=== PATIENT | female | born 1955 | race Caucasian/White ===

== ENCOUNTER 2017-02-09 10:09 | Inpatient (IN) | payer MEDICARE ==
[~2017-02-09] VITALS: Ht 160 cm; Wt 108.9 kg
[~2017-02-09 10:09] MED LIST: GABA-486 PO
[2017-02-09] MEDS ORDERED: ceFAZolin 1 GM/NS 50 ML IVPB IV ONE ×2 (10:30)
[2017-02-09 10:46] VITALS: BP 137/98
--- NOTE | 2017-02-09 11:27 | Progress Note-Pre Operative ---
Pre-Operative Progress Note H&P Reviewed The H&P was reviewed, patient examined and no changes noted. Date Seen by Provider: Feb 09, 2017 Time Seen by Provider: 11:27 Date H&P Reviewed: Feb 09, 2017 Time H&P Reviewed: 11:27 Pre-Operative Diagnosis: morbid obesity, HTN NADINE PENNY MD Feb 09, 2017 11:27 am
[2017-02-09] MEDS ORDERED: FAMOTIDINE 20MG/2ML IV (PEPCID) ONE (13:22)
[2017-02-09] MEDS ORDERED: SCOPOLAMINE 1.5 MG (TRANSDERM-SCOP) PATCH ONE (13:22)
[2017-02-09] MEDS ORDERED: MIDAZOLAM 2 MG/2 ML (VERSED) VIAL ONE ×3 (13:22→14:57)
[2017-02-09] MEDS ORDERED: ONDANSETRON 4 MG/2 ML (SDV) Z0FRAN ONE ×2 (13:22→14:15)
[2017-02-09] MEDS ORDERED: ATRACURIUM 50 MG/5 ML (TRACRIUM) IV ONE (13:23)
[2017-02-09] MEDS ORDERED: BUP/EPI 0.5% 1:200,000 (MARCAINE) 10ML VIAL IJ ONE (13:23)
[2017-02-09] MEDS ORDERED: LACTATED RINGERS 1,000 ML IV PRN (13:32)
[2017-02-09] MEDS ORDERED: MIDAZOLAM 2 MG/2 ML (VERSED) VIAL IV ONE (13:45)
[2017-02-09] MEDS ORDERED: FAMOTIDINE 20MG/2ML IV (PEPCID) IV ONE (13:45)
[2017-02-09] MEDS ORDERED: SCOPOLAMINE 1.5 MG (TRANSDERM-SCOP) PATCH TOP ONE (13:45)
[2017-02-09] MEDS ORDERED: ONDANSETRON 4 MG/2 ML (SDV) Z0FRAN IV ONE (13:45)
[2017-02-09] MEDS ORDERED: ROCURONIUM 50 MG/5 ML (ZEMURON) VIAL IV ONE (14:15)
[2017-02-09] MEDS ORDERED: DEXAMETHASONE 10 MG/ML (DECADRON) 1 ML VIAL ONE (14:15)
[2017-02-09] MEDS ORDERED: LIDOCAINE PF 2% 5 ML (XYLOCAINE) VIAL ONE (14:15)
[2017-02-09] MEDS ORDERED: SEVOFLURANE (ULTANE) 15 ML INHAL SOLN ONE ×2 (14:15→16:26)
[2017-02-09] MEDS ORDERED: proPOfol 200 MG/20 ML (DIPRIVAN) VIAL IV ONE (14:15)
[2017-02-09] MEDS ORDERED: fentaNYL INJECTION 250 MCG/5 ML AMP ONE (14:16)
[2017-02-09] MEDS ORDERED: fentaNYL INJECTION 100 MCG/2 ML AMP ONE ×2 (16:20→17:47)
[2017-02-09] MEDS ORDERED: ONDANSETRON 4 MG/2 ML (SDV) Z0FRAN IVP PRN (16:30)
[2017-02-09] MEDS ORDERED: NEOSTIGMINE (BLOXIVERZ ) 1 MG/1ML 10 ML VIAL ONE (16:39)
[2017-02-09] MEDS ORDERED: GLYCOPYRROLATE 0.2 MG/ML (ROBINUL) 2 ML VIAL ONE (16:39)
[2017-02-09] MEDS ORDERED: LABETALOL HCL 20 MG/4 ML VIAL ONE ×2 (16:48→17:19)
[2017-02-09] MEDS ORDERED: NS IV 1000 ML 1,000 ML IV SCH (17:17)
--- NOTE | 2017-02-09 17:17 | Progress Note-Post Operative ---
Post-Operative Progess Note Surgeon (s)/Grab Operator (s) Surgeon NADINE PENNY MD Grab Operator: fanta slade Pre-Operative Diagnosis Morbid obesity, HTN, DJD Post-Operative Diagnosis same Procedure & Operative Findings Date of Procedure 02/09/17 Procedure Performed/Findings laparoscopic gastric sleeve resection. Anesthesia Type GET Estimated Blood Loss Estimated blood loss (mL): minimal Specimens/Packing Specimens Removed stomach NADINE PENNY MD Feb 09, 2017 5:17 pm
[2017-02-09] MEDS ORDERED: ONDANSETRON 4 MG/2 ML (SDV) Z0FRAN IV PRN (17:30)
[2017-02-09] MEDS ORDERED: diphenhydrAMINE 50 MG/ML INJ (BENADRYL) IV PRN (17:30)
[2017-02-09] MEDS ORDERED: NALOXONE 0.4 MG/ML 1 ML (NARCAN) VIAL IV PRN (17:30)
[2017-02-09] MEDS ORDERED: diphenhydrAMINE 50 MG/ML INJ (BENADRYL) IVP PRN (17:30)
[2017-02-09] MEDS: RT-ALBUTEROL SULF 2.5 MG/3 ML PRE-MIX VIAL INH SCH ×3 (17:30→22:29)
[2017-02-09] MEDS: morphine INJ 10 MG/ML 1ML (SYR OR VIAL) IVP PRN ×2 (17:30→17:35)
[2017-02-09] MEDS ORDERED: METOCLOPRAMIDE INJ 10 MG/2 ML (REGLAN) IV PRN (17:30)
[2017-02-09] MEDS: fentaNYL INJECTION 100 MCG/2 ML AMP IVP PRN ×2 (17:55→18:12)
[2017-02-09 18:48] VITALS: BP 178/84
[2017-02-09] MEDS: ONDANSETRON 4 MG/2 ML (SDV) Z0FRAN IVP SCH ×2 (19:00→23:39)
[2017-02-09] MEDS: METOCLOPRAMIDE INJ 10 MG/2 ML (REGLAN) IVP SCH (19:34)
[2017-02-09] MEDS: 1/2 NS W/KCL 20 MEQ/L 1,000 ML IV SCH (19:37)
[2017-02-09] MEDS: fentaNYL PCA 300 MCG/30 ML VIAL IV PRN (19:47)
[2017-02-09 19:50] VITALS: BP 178/85
[2017-02-09] MEDS ORDERED: INFLUENZA TRIvalent 2017-2018 0.5 ML/45 MCG SYR IM ONE (20:30)
[2017-02-09] MEDS: ceFAZolin 2 GM/50 ML NS 50 ML IV SCH (21:08)
[2017-02-09] MEDS: ENOXAPARIN 30 MG/0.3 ML (LOVENOX) SYR SC SCH (21:08)
[2017-02-09] MEDS: DEXAMETHASONE 4 MG/ML SDV (DECADRON) IV PRN (21:24)
[2017-02-09] MEDS ORDERED: HYDROmorphone (DILAUDID) 2 MG/ML VIAL IVP PRN (22:00)
[2017-02-09] MEDS ORDERED: PROMETHAZINE INJ 25 MG/ML (PHENERGAN) AMP IVP PRN (22:00)
[2017-02-09] MEDS: CLINDAMYCIN INJECTION 600 MG in NS (IVPB) 50 ML IV SCH (22:50)
[2017-02-09 23:22] VITALS: BP 141/75
[2017-02-10] MEDS: METOCLOPRAMIDE INJ 10 MG/2 ML (REGLAN) IVP SCH ×3 (00:35→12:45)
[2017-02-10] MEDS: DEXAMETHASONE 4 MG/ML SDV (DECADRON) IV PRN (01:45)
[2017-02-10] MEDS: RT-ALBUTEROL SULF 2.5 MG/3 ML PRE-MIX VIAL INH SCH ×4 (02:26→14:01)
[2017-02-10] MEDS: 1/2 NS W/KCL 20 MEQ/L 1,000 ML IV SCH ×2 (03:08→06:41)
--- NOTE | 2017-02-10 03:32 | OPERATIVE REPORT ---
DATE OF SERVICE: 02/09/2017 PRIMARY CARE PHYSICIAN: Dr. Hickey. PREOPERATIVE DIAGNOSIS: Morbid obesity, degenerative joint disease, hypertension. POSTOPERATIVE DIAGNOSIS: Morbid obesity, degenerative joint disease, hypertension. PROCEDURE: Laparoscopic gastric sleeve resection. SURGEON: Dr. Nadine Penny. MAINTENANCE SHOP CLERK: Tony Zhu APRN. ANESTHESIA: General endotracheal. ESTIMATED BLOOD LOSS: Minimal. FINDINGS: Anterior omental adhesions due to a previous laparotomy incision, surgically absent gallbladder. No hiatal hernia. DISPOSITION: The patient tolerated the procedure well. INDICATIONS: The patient is a 61-year-old female who has struggled with obesity for the past 30 years. She reports that she has tried a number of diet and exercise attempts with no success. She has tried exercise programs including walking treadmill, stationary bike as well as aerobic exercise classes with no success. She has tried diet regimens including a low-calorie, low-carbohydrate diet as well as Atkins and [place] diet as well as some fast again with no success. She has also tried phentermine for several months and did lose some weight; however, would regain the weight back as well as more after discontinuation of the medication. Her medical comorbidities related to her obesity include degenerative joint disease and hypertension. DESCRIPTION OF PROCEDURE: The patient was brought to the operating room, laid supine on the table. After adequate IV pain and sedative medications and general endotracheal intubation, the abdomen was prepped and draped in standard surgical fashion. A 0.5% Marcaine with epinephrine was used to anesthetize the overlying skin in the left upper abdominal quadrant and a small transverse skin incision made using a 15 blade. An 0 silk suture was applied to the medial aspect of the incision for retraction and a Veress needle inserted with a low opening pressure of 0 mmHg and the abdomen was then insufflated to 15 mmHg pressure. The Veress needle removed and a 5 mm Xcel trocar placed, followed by a 5 mm 45-degree angle laparoscope visualizing the peritoneal cavity. A significant amount of omental adhesions were identified towards the anterior abdominal wall secondary to previous midline laparotomy incision. A midabdominal left of midline 10 mm port was placed. The omental adhesions were then taken down systematically using Sonicision with visualization of good hemostasis. We then proceeded to place a midabdominal 15 mm port site, after the skin and peritoneal lining were anesthetized using 0.5% Marcaine with epinephrine and a transverse skin incision made using a 15 blade. In a similar manner, a right upper abdominal quadrant 5 mm port was placed. The epigastric region was then anesthetized and a small skin incision made using a 11 blade. A trocar to a 5 mm port was then used to create an opening through the abdominal wall layers and through this opening a medium-sized Autumn liver retractor was placed and the left lobe of the liver retracted anteriorly and superiorly. The patient was then placed in steep reverse Trendelenburg position. We then measured approximately 6 cm from the pylorus along the greater curvature and marked this with a marking pen. The gastrocolic ligament next to the stomach was then opened using Sonicision entering the lesser sac. We first proceeded with inferior dissection until we were approximately 2 cm below our marking. We then proceeded cephalad taking the short gastric vessels towards the stomach with good visualization and good hemostasis. The entire angle of his connective tissue fibers as well as the posterior stomach behind this was also dissected as well. Good hemostasis was observed. A 42-Chinese bougie was then placed under direct visualization and directed into the pylorus. We then proceeded with a gastric sleeve resection starting approximately 2 cm below our marking along the greater curvature using a VANCE 45 mm polyglycolic acid black load. We then proceeded with a 60 mm black load, followed by three 60 mm purple loads with visualization of good hemostasis. The staple line corners were then clipped with 5 mm clips. Tisseel fibrin glue was then placed over the staple line and the omentum placed over the staple line. The liver retractor was removed. The stomach was removed through the 15 mm port site. The fascia and peritoneum to the 15 and 10 mm port site were then closed under direct visualization using a Herve-Alex device and 0 Vicryl suture. The abdomen was desufflated and remaining ports removed. All skin incisions were closed using 4-0 Monocryl running subcuticular sutures. Wounds were then cleaned and covered with Dermabond. The patient tolerated the procedure well. We will admit her overnight and start adequate pain control with a FORK REPAIRER. We will also proceed with DVT prophylaxis with calf SCDs, early ambulation as well as Lovenox injections. Tomorrow morning, we will start a phase I clear liquid diet and once she is tolerating clears and has good pain control with oral pain medications and ambulating well, we will discharge her home. Job ID: [id number] DocumentID: [id number] Dictated Date: 02/09/2017 17:47:52 Loading Machine Operator Date: 02/10/2017 00:41:56 Dictated By: NADINE PENNY MD
[2017-02-10 04:00] VITALS: BP 164/85
[2017-02-10] MEDS: ceFAZolin 2 GM/50 ML NS 50 ML IV SCH ×2 (05:12→13:44)
[2017-02-10] MEDS: CLINDAMYCIN INJECTION 600 MG in NS (IVPB) 50 ML IV SCH ×2 (06:01→13:24)
[2017-02-10 06:21] LABS: MEAN PLATELET VOLUME 10.2 FL (7.4-10.4); RED BLOOD COUNT 4.68 10^6/uL (4.35-5.85); RED CELL DISTRIBUTION WIDTH 13.1 % (10.0-14.5); WHITE BLOOD COUNT 14.8 10^3/uL (4.3-11.0)
[2017-02-10 06:40] LABS: ANION GAP 11 MMOL/L (5-14); BLOOD UREA NITROGEN 12 MG/DL (7-18); BUN/CREATININE RATIO 14; CALCIUM 9.1 MG/DL (8.5-10.1); CARBON DIOXIDE 22 MMOL/L (21-32); CHLORIDE 106 MMOL/L (98-107); CREATININE SERUM 0.85 MG/DL (0.60-1.30); GFR ESTIMATED > 60; GLUCOSE 155 MG/DL (70-105); POTASSIUM 4.4 MMOL/L (3.6-5.0); SODIUM 139 MMOL/L (135-145)
[2017-02-10] MEDS: ONDANSETRON 4 MG/2 ML (SDV) Z0FRAN IVP SCH ×2 (06:41→11:20)
[2017-02-10] MEDS ORDERED: PANTOPRAZOLE 40 MG (PROTONIX) TAB PO SCH (07:00)
[2017-02-10 08:00] VITALS: BP 168/79
[2017-02-10] MEDS: ENOXAPARIN 30 MG/0.3 ML (LOVENOX) SYR SC SCH (08:30)
[2017-02-10] MEDS: fentaNYL PCA 300 MCG/30 ML VIAL IV PRN (08:41)
[2017-02-10] MEDS ORDERED: SENNA W/DOCUSATE (SENOKOT S) TABLET PO SCH (09:00)
[2017-02-10] MEDS ORDERED: PANTOPRAZOLE 40 MG/10 ML (PROTONIX) VIAL IV SCH (09:00)
[2017-02-10] MEDS ORDERED: HYDR118S10 PO (09:03)
[2017-02-10] MEDS ORDERED: PANT40TA3 PO (09:03)
[2017-02-10] MEDS ORDERED: ONDA4TAB10 PO (09:03)
[2017-02-10] MEDS: oxyCODONE 5 MG/5 ML ORAL SOLN (roxiCODONE) 5 ML UDC PO PRN ×2 (11:20→15:37)
[2017-02-10] MEDS ORDERED: AMOX-358 PO (11:36)
[2017-02-10] MEDS ORDERED: APIX5TAB PO (11:36)
[2017-02-10] MEDS ORDERED: FLUC100T PO (11:36)
[2017-02-10] MEDS ORDERED: DOCU-143 PO (11:36)
--- NOTE | 2017-02-10 11:58 | Progress Note (SOAP) ---
Subjective Date Seen by Provider: Feb 10, 2017 Time Seen by Provider: 11:30 Subjective/Events-last exam doing well. tolerating clears. ambulating well. Objective Exam Vital Signs Date Time Temp Pulse Resp B/P (MAP) Pulse Ox O2 Delivery O2 Flow Rate FiO2 02/10/17 09:56 97 Room Air 02/10/17 09:17 Nasal Cannula 2.00 02/10/17 09:15 98.1 02/10/17 08:41 22 02/10/17 08:00 98.1 112 20 168/79 96 Nasal Cannula 3.00 02/10/17 06:35 97 Nasal Cannula 1.00 02/10/17 04:00 97.8 110 22 164/85 98 Nasal Cannula 3.00 02/10/17 02:26 97 Nasal Cannula 2.00 02/09/17 23:22 96.5 106 18 141/75 99 Nasal Cannula 3.00 02/09/17 22:29 98 Nasal Cannula 2.00 02/09/17 21:00 Nasal Cannula 2.00 02/09/17 20:15 100 Nasal Cannula 2.00 02/09/17 19:50 96.8 84 14 178/85 99 Nasal Cannula 3.00 02/09/17 19:47 18 02/09/17 18:48 96.5 91 16 178/84 99 Nasal Cannula 3.00 Capillary Refill : General Appearance: No Apparent Distress HEENT: PERRL/EOMI Neck: Full Range of Motion Respiratory: Chest Non Tender, Lungs Clear, Normal Breath Sounds Cardiovascular: Regular Rate, Rhythm Gastrointestinal: normal bowel sounds, soft Extremity: Normal Capillary Refill Neurologic/Psychiatric: Alert, Oriented x3 Skin: Normal Color Lymphatic: No Adenopathy Results Lab Laboratory Tests 02/10/17 06:02: White Blood Count 14.8H, Red Blood Count 4.68, Hemoglobin 13.9, Hematocrit 42, Mean Corpuscular Volume 89, Mean Corpuscular Hemoglobin 30, Mean Corpuscular Hemoglobin Concent 33, Red Cell Distribution Width 13.1, Platelet Count 266, Mean Platelet Volume 10.2, Sodium Level 139, Potassium Level 4.4, Chloride Level 106, Carbon Dioxide Level 22, Anion Gap 11, Blood Urea Nitrogen 12, Creatinine 0.85, Estimat Glomerular Filtration Rate > 60, BUN/Creatinine Ratio 14, Glucose Level 155H, Calcium Level 9.1 Assessment/Plan Assessment/Plan Assess & Plan/Chief Complaint s/p lap sleeve gastrectomy. phase I clear liquid diet 2 weeks. ambulate. home soon. Clinical Quality Measures DVT/VTE Risk/Contraindication: Risk Factor Score Per Nursin RFS Level Per Nursing on Admit: 4+=Very High NADINE PENNY MD Feb 10, 2017 11:58 am
[2017-02-10 12:00] VITALS: BP 163/94
[2017-02-10] MEDS ORDERED: diphenhydrAMINE 25 MG TAB (BENADRYL) PO NR (15:15)
[2017-02-10 16:10] VITALS: BP 163/94
[2017-02-10] MEDS ORDERED: ONDANSETRON 4 MG/2 ML (SDV) Z0FRAN IVP PRN (17:30)
[2017-02-10] MEDS ORDERED: METOCLOPRAMIDE INJ 10 MG/2 ML (REGLAN) IVP PRN (17:30)
== END 2017-02-10 16:05 | disposition home or self-care (01) | DRG 621 ==
LOC: 4TH 10:09 → SURG 10:10 → EDSTATUS 11:15 → 4TH 18:45
PROVIDERS: ADMIT Surgery; ATTEND Surgery
PROC: 0DB64Z3 Excision of Stomach, Percutaneous Endoscopic Approach, Vertical (ICD-10-PCS; principal; 2017-02-09 14:58)
DX: E66.01 Morbid (severe) obesity due to excess calories (principal); Z68.41 Body mass index [BMI] 40.0-44.9, adult; I10 Essential (primary) hypertension; M17.0 Bilateral primary osteoarthritis of knee; M16.0 Bilateral primary osteoarthritis of hip
CPT/HCPCS: 36415; 80048; 85027; 94640; 94664; 94760

== ENCOUNTER → 2021-08-03 | Outpatient (CLI) | payer MEDICARE ==
[~2021-08-03] VITALS: Ht 162.6 cm; Wt 74.0 kg
[~2021-08-03] MED LIST changes: +AMOX-358 PO; +APIX5TAB PO; +DOCU-143 PO; +FLUC100T PO; +HYDR15SO6 PO; +ONDA-105 PO; +PANT40TA52 PO
== END | disposition home or self-care (01) ==
LOC: PREOP 05:33
PROVIDERS: ATTEND Specialist
DX: Z01.818 Encounter for other preprocedural examination (principal)

== ENCOUNTER 2021-08-09 09:24 | Day surgery (SDC) | payer MEDICARE ==
[~2021-08-09] VITALS: Ht 162.6 cm; Wt 74.0 kg
[2021-08-09] MEDS ORDERED: MOXIFLOXACIN OPHTH SOLN 5 MG/ML 0.3 ML SYRINGE OP ONE (09:30)
[2021-08-09] MEDS ORDERED: PHENYLEPHRINE 10% OPHTH (NEO-SYN) 5 ML BTL OU SCH (09:30)
[2021-08-09] MEDS ORDERED: TETRACAINE 0.5% OPHTH SOLN 4 ML BTL (SINGLE DOSE ONLY) OU PRN (09:30)
[2021-08-09] MEDS ORDERED: LIDOCAINE PF 1% 2 ML VIAL IR PRN (09:30)
[2021-08-09] MEDS ORDERED: POVIDONE (BETADINE) OPHTH SOLN 5% 30 ML OP ONE (09:30)
[2021-08-09] MEDS ORDERED: TIMOLOL MALEATE 0.5% 5 ML (TIMOPTIC) BTL OU PRN (09:30)
[2021-08-09] MEDS ORDERED: TROPICAMIDE 1% OPH SOLN (MYDRIACYL) 15 ML BTL OP SCH (09:30)
[2021-08-09] MEDS: TETRACAINE 0.5% OPHTH SOLN 4 ML BTL (SINGLE DOSE ONLY) OU PRN ×3 (09:39→09:45)
[2021-08-09] MEDS ORDERED: PHENYLEPHRINE 10% OPHTH (NEO-SYN) 5 ML BTL OU PRN (09:45)
[2021-08-09] MEDS ORDERED: TROPICAMIDE 1% OPH SOLN (MYDRIACYL) 15 ML BTL OU PRN (09:45)
[2021-08-09 09:52] VITALS: BP 120/76
--- NOTE | 2021-08-09 10:20 | Ophthalmologist Pre-Op Note ---
Pre-Operative Progress Note H&P Reviewed The H&P was reviewed, patient examined and no changes noted. Date H&P Reviewed: August 09, 2021 Time H&P Reviewed: 10:00 Pre-Op Dx Secondary Cataract, Right Eye KEKE CLEARY MD August 09, 2021 10:20
--- NOTE | 2021-08-09 10:21 | Ophthalmology Operative Report ---
YAG Capsulotomy PREOPERATIVE DIAGNOSIS: Secondary Cataract Right Eye POSTOPERATIVE DIAGNOSIS: Secondary Cataract Right Eye PROCEDURE: YAG Capsulotomy, right eye SURGEON: Marcos Cleary ANESTHESIA: Topical anesthesia COMPLICATIONS: None ESTIMATED BLOOD LOSS: Minimal DESCRIPTION OF PROCEDURE: After proper informed consent was obtained, the patient's, a 65 female, right eye received one drop of Tropicamide and one drop of Tetracaine. The patient was then placed at the YAG laser and using a power of [ 4.0] millijoules and [ 17] bursts were used to fashion a central capsulotomy. The patient tolerated the procedure well without complications. MARCOS CLEARY MD August 09, 2021 10:21
[2021-08-09] MEDS ORDERED: acetaZOLAMIDE ER 500 MG CAP (DIAMOX SEQUELS) PO ONE (13:45)
== END 2021-08-09 10:07 | disposition home or self-care (01) ==
LOC: SDC 09:24
PROVIDERS: ATTEND Specialist
DX: H26.40 Unspecified secondary cataract (principal)

== ENCOUNTER 2021-08-27 11:38 | Day surgery (SDC) | payer MEDICARE ==
[~2021-08-27] VITALS: Ht 162.6 cm; Wt 74.0 kg
[2021-08-27] MEDS ORDERED: POVIDONE (BETADINE) OPHTH SOLN 5% 30 ML OP ONE (11:45)
[2021-08-27] MEDS ORDERED: TIMOLOL MALEATE 0.5% 5 ML (TIMOPTIC) BTL OU PRN (11:45)
[2021-08-27] MEDS ORDERED: MOXIFLOXACIN OPHTH SOLN 5 MG/ML 0.3 ML SYRINGE OP ONE (11:45)
[2021-08-27] MEDS ORDERED: LIDOCAINE PF 1% 2 ML VIAL IR PRN (11:45)
[2021-08-27] MEDS: TETRACAINE 0.5% OPHTH SOLN 4 ML BTL (SINGLE DOSE ONLY) OU PRN ×4 (11:54→12:16)
[2021-08-27 12:00] VITALS: BP 130/75
[2021-08-27] MEDS ORDERED: MIDAZOLAM 2 MG/2 ML (VERSED) VIAL ONE (12:01)
[2021-08-27] MEDS: PHENYLEPHRINE 10% OPHTH (NEO-SYN) 5 ML BTL OU SCH ×3 (12:03→12:17)
[2021-08-27] MEDS: TROPICAMIDE 1% OPH SOLN (MYDRIACYL) 15 ML BTL OP SCH ×3 (12:03→12:17)
--- NOTE | 2021-08-27 12:39 | Ophthalmologist Pre-Op Note ---
Pre-Operative Progress Note H&P Reviewed The H&P was reviewed, patient examined and no changes noted. Date H&P Reviewed: Aug 27, 2021 Time H&P Reviewed: 12:39 Pre-Op Dx Cataract, Left Eye KEKE CLEARY MD Aug 27, 2021 12:39
[2021-08-27] MEDS ORDERED: acetaZOLAMIDE ER 500 MG CAP (DIAMOX SEQUELS) PO ONE (13:00)
--- NOTE | 2021-08-27 13:04 | Ophthalmology Operative Report ---
Cataract removal/placement IOL PREOPERATIVE DIAGNOSIS: Cataract Left Eye POSTOPERATIVE DIAGNOSIS: Cataract Left Eye PROCEDURE: Cataract removal and placement of posterior chamber implant, left eye SURGEON: Marcos Cleary ANESTHESIA: Topical with sedation COMPLICATIONS: None ESTIMATED BLOOD LOSS: Minimal DESCRIPTION OF PROCEDURE: After proper informed consent was obtained, the patient, a 66 female, was taken to the Operating Room and the left eye was anesthetized with tetracaine. The left eye was then prepped and draped in the usual manner. A wire lid speculum was placed. A paracentesis was made at the left hand position. Preservative free lidocaine was injected into the anterior chamber followed by viscoelastic. A clear corneal incision was made in the temporal position. A capsulorrhexis was preformed and the central nuclear and cortical material were removed. The posterior capsule was polished and an Andi 22.0 AU00T0 was placed into the capsular bag. The residual viscoelastic was aspirated and balanced saline solution was injected into the anterior chamber. Moxifloxacin was injected into the anterior chamber. The wound was checked and found to be water tight. The patient tolerated the procedure well without complications. MARCOS CLEARY MD Aug 27, 2021 13:03
[2021-08-27 13:06] VITALS: BP 121/73
--- NOTE | 2021-08-27 13:36 | Anesthesia-General Post-Op ---
MAC Patient Condition Mental Status/LOC: Same as Preop Cardiovascular: Satisfactory Nausea/Vomiting: Absent Respiratory: Satisfactory Pain: Controlled Complications: Absent Post Op Complications Complications None Follow Up Care/Instructions Patient Instructions None needed. Anesthesiology Discharge Order Discharge Order Patient is doing well, no complaints, stable vital signs, no apparent adverse anesthesia problems. No complications reported per nursing. BERNICE WINN CRNA Aug 27, 2021 13:36
== END 2021-08-27 13:08 | disposition home or self-care (01) ==
LOC: SDC 11:38
PROVIDERS: ATTEND Specialist
DX: H25.9 Unspecified age-related cataract (principal); Z88.5 Allergy status to narcotic agent; Z88.1 Allergy status to other antibiotic agents
CPT/HCPCS: 66984; V2632